=== PATIENT | female | born 1980 | race African-American/Black ===

== ENCOUNTER 2017-01-01 09:36 | Emergency (ER) | payer OTHER ==
[2017-01-01 09:48] VITALS: BMI 25.1
--- NOTE | 2017-01-01 10:28 | PDOC ---
Attending Attestation - Resident Resident Name: Trudi Schneider - ED Attending Attestation I have performed the following: I have examined & evaluated the patient, The case was reviewed & discussed with the resident, I agree w/resident's findings & plan, Exceptions are as noted - HPI HPI: 01/01/17 11:07 36yo F no significant hx p/w 1 week of lightheadedness and weakness. Symptoms are worse when standing. A/w nausea and subjective fever once 2-3 days ago. Denies CP, SOB. Also reports blurry vision for over 2 years. Normal PO intake, has been drinking a lot of water. Saw her PMD on Thursday who referred her to neurology and she made an appointment next month. Pt requesting test and STI testing including HIV. - Physicial Exam PE: 01/01/17 11:16 GENERAL: Awake, alert, and fully oriented, in no acute distress HEAD: No signs of trauma EYES: PERRLA, EOMI, sclera anicteric, conjunctiva clear ENT: Auricles normal inspection, hearing grossly normal, nares patent, oropharynx clear without exudates. Moist mucosa NECK: Normal ROM, supple, no lymphadenopathy, JVD, or masses LUNGS: Breath sounds equal, clear to auscultation bilaterally. No wheezes, and no crackles HEART: Regular rate and rhythm, normal S1 and S2, no murmurs, rubs or gallops ABDOMEN: Soft, nontender, normoactive bowel sounds. No guarding, no rebound. No masses EXTREMITIES: Normal range of motion, no edema. No clubbing or cyanosis. No cords, erythema, or tenderness NEUROLOGICAL: Normal speech, cranial nerves intact, negative pronator drift, 5/ 5 strength in all 4 extremities, normal sensation to light touch in all 4 extremities, normal cerebellar exam, normal gait, normal reflexes and tone SKIN: Warm, Dry, normal turgor, no rashes or lesions noted. - Medical Decision Making 01/01/17 11:17 36yo F p/w lightheadedness for 1 week. Pt has had previous presentation for the same to the ED. She also requests HIV testing, STI testing, and UPT after unprotected intercourse 4 days ago. Vitals unremarkable. Exam unremarkable, including steady gait. Lightheadedness may be 2/2 mild dehydration vs anemia vs infection vs metabolic abnormalities. -labs -UA -UPT -IVF -HIV test -GC/CT UA -reassess 01/01/17 14:34 UA, UPT negative. HIV negative. Labs unremarkable. Pt states her dizziness has resolved and she feels much better after IV fluids. GC/CT pending, pt aware she will be called if positive. I discussed the physical exam findings, ancillary test results and final diagnoses with the patient. I answered all of the patient 's questions. The patient was satisfied with the care received and felt comfortable with the discharge plan and treatment plan. The patient will call their primary care physician within 24 hours to arrange follow-up and will return to the Emergency Department with any new, persistent or worsening symptoms.
--- NOTE | 2017-01-01 10:42 | PDOC ---
History of Present Illness - General Chief Complaint: Lightheaded Stated Complaint: DIZZINESS hx OF VERTIGO Time Seen by Provider: 01/01/17 10:16 Exam Limitations: No Limitations - History of Present Illness Initial Comments: 01/01/17 11:06 CC: Lightheadedness Patient is a 36 y.o. female with a PMH of vertigo present c/o 5 day h/o of lightheadedness. Patient notes she consistently feels lightheaded and it is exacerbated by moving from supine to sitting or sitting to standing. Patient denies any syncopal episodes or associated nausea, vomiting, chest pain, shortness of breath or visual changes. Patient states she was evaluated by her PCP and a neurologist for similar symptoms in May 2015 at which time she was prescribed Meclizine. Patient did not take the medication as she experienced significant side effects (dry mouth) and at that time her symptoms were self-resolving in 1-2 weeks. Patient also requests test and STI testing as she has had a recent episode of unprotected sexual intercourse with a male partner and multiple male partners over the last 1 year. Patient notes her LMP was in November 2015 and she had 1-2 days of spotting in December, however not the usual amount of bleeding associated with her menstrual cycle which are normally every 30 days with 4-5 days of flow. Past History - Past Medical History Allergies/Adverse Reactions: Allergies Allergy/AdvReac Type Severity Reaction Status Date / Time No Known Allergies Allergy Verified 01/01/17 11:03 Home Medications: Ambulatory Orders Meclizine HCl [Antivert -] 12.5 mg PO TID 01/01/17 Asthma: No Cancer: No Cardiac Disorders: No Diabetes: No HTN: No Seizures: No Thyroid Disease: No Other medical history: BISHOP PAIUTE RT EAR - Surgical History Abdominal Surgery: Yes (LIPOSUCTION) - Immunization History Immunization Up to Date: Yes - Suicide/Smoking/Psychosocial Hx Smoking History: Never smoked Information on smoking cessation initiated: No Hx Alcohol Use: No Drug/Substance Use Hx: No Substance Use Type: None Hx Substance Use Treatment: No Review of Systems - Review of Systems Constitutional: No: Chills, Diaphoresis HEENTM: No: Blurred Vision, Double Vision Respiratory: No: Cough, Shortness of Breath Cardiac (ROS): Yes: Lightheadedness. No: Chest Pain, Palpitations ABD/GI: Yes: Poor Fluid Intake. No: Constipated, Diarrhea, Nausea, Vomiting : No: Burning, Dysuria Musculoskeletal: No: Back Pain, Muscle Pain Neurological: No: Headache, Numbness Psychiatric: No: Anxiety, Depression *Physical Exam - Vital Signs Last Vital Signs Temp Pulse Resp BP Pulse Ox 97.9 F 93 H 19 112/73 100 01/01/17 09:45 01/01/17 09:45 01/01/17 09:45 01/01/17 09:45 01/01/17 09:45 - Physical Exam General Appearance: Yes: Nourished, Appropriately Dressed HEENT: positive: EOMI, KARRI Neck: positive: Trachea midline, Supple Respiratory/Chest: positive: Lungs Clear, Normal Breath Sounds Cardiovascular: positive: Regular Rhythm, Regular Rate, S1, S2 Gastrointestinal/Abdominal: positive: Normal Bowel Sounds, Soft Extremity: positive: Normal Capillary Refill, Normal Inspection Integumentary: positive: Normal Color, Dry, Warm Neurologic: positive: bolt header II-XII NML intact, Fully Oriented, Alert, Motor Strength 5/5, Finger to Nose ED Treatment Course - LABORATORY CBC & Chemistry Diagram: 01/01/17 10:00 01/01/17 12:45 Medical Decision Making - Medical Decision Making 01/02/17 14:33 Patient is a 36 y.o. female who presents with a c/o of lightheadedness, however also requests and STI testing. Initial DDx includes dehydration vs. arrthymia vs. UTI vs. . EKG @ presentation showed NSR with HR 90, No QT prolongation, no ST elevations/depression. PLAN: 1. UA 2. CBC, CMP 3. Urine /STI (patient consents to HIV) 4. 1 L IVNS kiln operator service for patient's PCP, Dr. Mckeon, contacted spoke with MA who noted inconsistent medical history. Patient's UA negative for UTI. CBC/CMP both wnL. Patient's symptoms resolved considerably following negative test results. Patient's HIV was similarly negative, however patient counseled that since her episode of unprotected sexual intercourse was within the last week, test should be repeated in 4 weeks and possibly again at the 3 month gabriel. Patient discharged with instruction to f/u with Dr. Mckeon as well as referral to neurology. Patient further advised to return to ED should her symptoms persist/increase in severity. *DC/Admit/Observation/Transfer Diagnosis at time of Disposition: Lightheadedness - Discharge Dispostion Disposition: HOME Condition at time of disposition: Good Admit: No - Referrals Referrals: King Mosher MD [Primary Care Provider] - Ranjith Patterson MD [Staff Physician] - - Patient Instructions Printed Discharge Instructions: DI for Dizziness-Nonvertigo Additional Instructions: You were evaluated today for lightheadedness. In addition, your STI panel and urine test were negative. Please follow up with your primary care physician within 1 week and make an appointment with Dr. Patterson (neurology) for further evaluation. Please return to the Emergency Department for any new, worsening, or concerning symptoms.
[2017-01-01 11:07] LABS: MCH 27.5 pg (25.7-33.7); MCHC 32.3 g/dl (32.0-36.0); MEAN PLT VOLUME 7.6 fl (7.5-11.1); PLATELET COUNT 431 K/MM3 (134-434); RDW 13.7 % (11.6-15.6); WHITE BLOOD COUNT 3.9 K/mm3 (4.0-10.0)
[2017-01-01] MEDS ORDERED: SODIUM CHLORIDE 0.9% 1000 ML INFUS.BAG IV ONE (11:20)
[2017-01-01 12:58] LABS: HIV 1 & 2 AB NEGATIVE; HIV 1 AGp24 NEGATIVE
[2017-01-01 13:46] LABS: ANION GAP 10 (8-16); CALCIUM 8.3 mg/dL (8.5-10.1); CO2 26 mmol/L (21-32); GLUCOSE,RANDOM 90 mg/dL (74-106)
[2017-01-01 13:50] LABS: ALK PHOS 84 U/L (45-117); BILIRUBIN,TOTAL 0.4 mg/dL (0.2-1.0); CREATININE 0.7 mg/dL (0.55-1.02); SGPT/ALT 50 U/L (12-78); TOT PROT 6.7 g/dl (6.4-8.2)
[2017-01-01 13:52] LABS: SGOT/AST 34 U/L (15-37)
[2017-01-01 14:22] LABS: URINE APPEARANCE CLEAR; URINE BILIRUBIN NEGATIVE (NEGATIVE); URINE BLOOD 1+ (NEGATIVE); URINE COLOR YELLOW; URINE GLUCOSE (UA) NEGATIVE (NEGATIVE); URINE KETONE NEGATIVE (NEGATIVE); URINE LEUK ESTERASE NEGATIVE (NEGATIVE); URINE NITRITE NEGATIVE (NEGATIVE); URINE PROTEIN NEGATIVE (NEGATIVE)
[2017-01-01 14:27] LABS: URINE MUCUS RARE; URINE RBC 2 /hpf (0-3); URINE WBC 1 /hpf (3-5)
--- NOTE | 2017-01-01 14:36 | EKG ---
Test Reason : Blood Pressure : / mmHG Vent. Rate : 090 BPM Atrial Rate : 090 BPM P-R Int : 162 ms QRS Dur : 070 ms QT Int : 328 ms P-R-T Axes : 071 012 012 degrees QTc Int : 401 ms NORMAL SINUS RHYTHM NORMAL ECG NO PREVIOUS ECGS AVAILABLE Confirmed by AUSTIN AHYS MD ([id number]) on 01/01/2017 2:36:17 PM Referred By: Confirmed By:AUSTIN HAYS MD
[2017-01-01 14:56] VITALS: BP 112/74; PULSE 82; TEMP 97.2
== END 2017-01-01 14:56 | disposition home or self-care (01) ==
LOC: JER 09:36
DX: R42 Dizziness and giddiness (principal); Z11.3 Encounter for screening for infections with a predominantly sexual mode of transmission; Z77.21 Contact with and (suspected) exposure to potentially hazardous body fluids
CPT/HCPCS: 36415; 80053; 81003; 81015; 84703; 85027; 87389; 87491; 87591; 93005; 93010; 99282-25

== ENCOUNTER 2019-01-06 21:14 | Emergency (ER) | payer OTHER ==
[2019-01-06 21:24] VITALS: BP 114/79; PULSE 88; TEMP 98.3; BMI 27.8
--- NOTE | 2019-01-06 21:24 | PDOC ---
Rapid Medical Evaluation Chief Complaint: Abscess Boil Time Seen by Provider: 01/06/19 21:21 Medical Evaluation: Allergies Allergy/AdvReac Type Severity Reaction Status Date / Time No Known Allergies Allergy Verified 01/06/19 21:20 01/06/19 21:21 38 year old female send by urgent care for I&D for pilonidal abscess. patient reports sacral pain . patient c/o of slight dysuria PE: patient alert ox3 A: pilonidal cyst P: patient to the ER for further management of care Discharge Disposition - Diagnosis Pilonidal abscess - Referrals - Patient Instructions - Post Discharge Activity
[2019-01-06] MEDS ORDERED: LIDOCAINE HCL 2% (50ML VIAL) SQ ONE (21:46)
[2019-01-06] MEDS ORDERED: LIDOCAINE HCL 2% (20ML MULTI-DOSE VIAL) NR ONE (21:47)
[2019-01-06] MEDS ORDERED: CEPHALEXIN MONOHYDRATE 500 MG CAPSULE (UD) PO ONE (22:14)
--- NOTE | 2019-01-06 22:14 | PDOC ---
History of Present Illness - General Chief Complaint: Abscess Boil Stated Complaint: SENT BY PCP/CYST Time Seen by Provider: 01/06/19 21:21 History Source: Patient Exam Limitations: No Limitations - History of Present Illness Initial Comments: 01/06/19 22:27 Chief complaint: Pilonidal cyst Patient is a healthy 38-year-old female who has had one week of increasing swelling just above the crease in her buttocks. No fever pain has gotten worse in the last 2 days. Patient went to urgent care today and they told her she had a pilonidal cyst and she needs come to the ER for further evaluation. Patient has never had this before. GENERAL/CONSTITUTIONAL: No fever, weakness. dizziness HEAD, EYES, EARS, NOSE AND THROAT: No change in vision. No ear pain or discharge. No sore throat. CARDIOVASCULAR: No chest pain RESPIRATORY: No shortness of breath or cough GASTROINTESTINAL: No pain, nausea, vomiting, diarrhea or constipation GENITOURINARY: No dysuria MUSCULOSKELETAL: No neck or back pain SKIN: No rash, + pilonidal cyst NEUROLOGIC: No headache, vertigo, loss of consciousness, or loss of sensation. GENERAL: The patient is awake, alert, and fully oriented, in no acute distress. HEAD: Normal with no signs of trauma. EYES: Pupils equal, round and reactive to light, sclera anicteric, conjunctiva clear. ENT: pharynx: no erythema, no exudate, uvula midline NECK: supple CHEST: clear, nontender, rr ABD: soft, nontender BACK: Small approximately 2 cm area of tenderness just above the left buttocks crease, minimal redness, no signs of gross cellulitis. And superior and a little bit to the left of this was another area that was approximately 3 cm in diameter, tender, questionable fluctuance, no other erythema, swelling or signs of cellulitis. Rest of back, no tenderness or signs of injury EXTREMITIES: Normal range of motion, no edema. NEUROLOGICAL: Normal speech, normal gait. SKIN: Warm, Dry Past History - Past Medical History Allergies/Adverse Reactions: Allergies Allergy/AdvReac Type Severity Reaction Status Date / Time No Known Allergies Allergy Verified 01/06/19 21:20 Home Medications: Ambulatory Orders Meclizine HCl [Antivert -] 12.5 mg PO TID 01/01/17 Cephalexin [Keflex] 1,000 mg PO BID #28 capsule 01/06/19 Sulfamethoxazole/Trimethoprim [Bactrim Ds Tablet] 1 each PO BID #14 tablet 01/06 Asthma: No Cancer: No Cardiac Disorders: No COPD: No Diabetes: No HTN: No Seizures: No Thyroid Disease: No - Surgical History Abdominal Surgery: Yes (LIPOSUCTION) - Immunization History Immunization Up to Date: Yes - Psycho Social/Smoking Cessation Hx Smoking History: Never smoked Hx Alcohol Use: No Drug/Substance Use Hx: No Substance Use Type: None Hx Substance Use Treatment: No *Physical Exam - Vital Signs Last Vital Signs Temp Pulse Resp BP Pulse Ox 98.3 F 88 18 114/79 97 01/06/19 21:21 01/06/19 21:21 01/06/19 21:21 01/06/19 21:21 01/06/19 21:21 Procedures - Incision and Drainage I&D Site: Left: Buttock Betadine cleansed: Yes Anesthesia: 2% Lidocaine Blade Size: 11 Attempts: 1 Iodinated Packin/2 in Plain Packing: Yes Complications: none Dressing: Yes Progress: 01/06/19 22:32 See note, 2 areas incision and drainage without any complications, packing put in both Medical Decision Making - Medical Decision Making 01/06/19 22:30 Well-appearing healthy 38-year-old female with pilonidal cysts, exam shows there are 2 areas of erythema, questionable communicating with each other. Will I&D larger area, questionable I&D smaller area depending on drainage pattern. Incision and drainage of the larger area did not show pus, there was a decent amount of blood, area was probed, pocket was found but there was no gross pus. Second smaller area was I&D need with decent amount of pus, pus was expressed, ear irrigated, packing placed in both areas. Patient will be sent home on antibiotics, will return on Thursday to have it reevaluated and packing removed. Patient will call surgeon in the morning and make an appointment for next week. Discussed issues, findings, results, applicable medications and treatments and follow-up. All these were understood and all questions were answered Discharge - Discharge Information Problems reviewed: Yes Clinical Impression/Diagnosis: Pilonidal abscess Condition: Stable Disposition: HOME - Admission No - Additional Discharge Information Prescriptions: Cephalexin [Keflex] 1,000 mg PO BID #28 capsule Sulfamethoxazole/Trimethoprim [Bactrim Ds Tablet] 1 each PO BID #14 tablet Prescription Drug Monitoring Program (I-STOP) results: I-STOP not reviewed - Follow up/Referral Referrals: King Mosher MD [Primary Care Provider] - Niko Dutta MD [Staff Physician] - - Patient Discharge Instructions Patient Printed Discharge Instructions: Pilonidal Cyst Additional Instructions: Leave packing in place, do not remove bandage Take the Bactrim and the Keflex, both twice a day until finished Return in 2 days to have packing removed and have reevaluation Return sooner if fever or feeling sicker Call surgeon tomorrow to make a follow-up appointment for next week - Post Discharge Activity
[2019-01-06] MEDS ORDERED: SULFAMETHOXAZOLE/TRIMETHOPRIM 800MG/160MG D.S. TABLET PO ONE (22:15)
[2019-01-06] MEDS ORDERED: SULFAMETHOXAZOLE/TRIMETHOPRIM 800MG/160MG D.S. TABLET ONE (22:23)
[2019-01-06] MEDS ORDERED: CEPHALEXIN MONOHYDRATE 500 MG CAPSULE (UD) ONE (22:24)
== END 2019-01-06 22:28 | disposition home or self-care (01) ==
LOC: JERFT 21:14
PROC: 0J990ZZ Drainage of Buttock Subcutaneous Tissue and Fascia, Open Approach (ICD-10-PCS; principal; 2019-01-06)
DX: L05.01 Pilonidal cyst with abscess (principal)
CPT/HCPCS: 99281-25

== ENCOUNTER 2019-01-08 11:53 | Emergency (ER) | payer OTHER ==
[2019-01-08 11:59] VITALS: BP 106/71; PULSE 96; TEMP 98.2; BMI 27.8
--- NOTE | 2019-01-08 12:46 | PDOC ---
Suture Removal/Wound Check HPI - History of Present Illness Chief Complaint: Revisit,Wound Recheck Stated Complaint: WOUND/REVISIT Time Seen by Provider: 01/08/19 12:06 History Source: Yes: Patient (wound check, s/p pilondial abscess that was drained 2 days ago) - Previous ED Treatment Type of procedure performed on last visit: Yes: I&D of Abscess Tetanus Immunization: Yes: Up to Date Past History - Travel Traveled outside of the country in the last 30 days: No Close contact w/someone who was outside of country & ill: No - Past Medical History Allergies/Adverse Reactions: Allergies Allergy/AdvReac Type Severity Reaction Status Date / Time No Known Allergies Allergy Verified 01/06/19 21:20 Home Medications: Ambulatory Orders Meclizine HCl [Antivert -] 12.5 mg PO TID 01/01/17 Cephalexin [Keflex] 1,000 mg PO BID #28 capsule 01/06/19 Sulfamethoxazole/Trimethoprim [Bactrim Ds Tablet] 1 each PO BID #14 tablet 01/06 Asthma: No Cancer: No Cardiac Disorders: No COPD: No Diabetes: No HTN: No Seizures: No Thyroid Disease: No - Surgical History Abdominal Surgery: Yes (LIPOSUCTION) - Immunization History Immunization Up to Date: Yes - Psycho Social/Smoking Cessation Hx Smoking History: Never smoked Have you smoked in the past 12 months: No Information on smoking cessation initiated: No Hx Alcohol Use: No Drug/Substance Use Hx: No Substance Use Type: None Hx Substance Use Treatment: No *Review of Systems - Review of Systems Constitutional: No: Chills, Fever Integumentary: No: Erythema, Pallor, Pruritus, Rash *Physical Exam - Vital Signs Last Vital Signs Temp Pulse Resp BP Pulse Ox 98.2 F 96 H 18 106/71 96 01/08/19 11:56 01/08/19 11:56 01/08/19 11:56 01/08/19 11:56 01/08/19 11:56 - Physical Exam General Appearance: Yes: Nourished Integumentary: positive: Other (+ 2 incison noted in gluteal cleft with packing , packing removed wih drainage, no warmth noted) Neurologic: positive: laborer orchard II-XII NML intact, Fully Oriented, Normal Mood/Affect , Normal Response, Motor Strength 5/5 Medical Decision Making - Medical Decision Making 01/08/19 12:49 38y/o F for wound check s/p pilonidial abscess which was drained 2 days ago pt is also on abx and is complaints UTD with vaccines no complaints Exam with incised area, still draining wound repacked RTC in 2 days for another wound check Discharge - Discharge Information Problems reviewed: Yes Clinical Impression/Diagnosis: Wound check, abscess Condition: Stable Disposition: HOME - Follow up/Referral Referrals: King Mosher MD [Primary Care Provider] - - Patient Discharge Instructions Additional Instructions: Your wound was packed again today please return to ER in 2 days for another wound check continue antibiotics as prescribed return to the ER if worsening symptoms occurs. - Post Discharge Activity
== END 2019-01-08 12:54 | disposition home or self-care (01) ==
LOC: JERFT 11:53
DX: Z48.817 Encounter for surgical aftercare following surgery on the skin and subcutaneous tissue (principal); Z48.01 Encounter for change or removal of surgical wound dressing
CPT/HCPCS: 99281-25

== ENCOUNTER 2019-01-10 19:41 | Emergency (ER) | payer OTHER ==
[2019-01-10 20:08] VITALS: BP 121/76; PULSE 96; TEMP 98.3; BMI 27.8
--- NOTE | 2019-01-10 20:08 | PDOC ---
Rapid Medical Evaluation Time Seen by Provider: 01/10/19 20:05 Medical Evaluation: Allergies Allergy/AdvReac Type Severity Reaction Status Date / Time No Known Allergies Allergy Verified 01/06/19 21:20 01/10/19 20:06 CC: wound check for pilonidal abscess PE: deferred Orders: nothing Patient is to proceed to ER for further evaluation. Discharge Disposition - Diagnosis Wound check, abscess - Referrals Referrals: King Mosher MD [Primary Care Provider] - - Patient Instructions - Post Discharge Activity
--- NOTE | 2019-01-10 21:29 | PDOC ---
History of Present Illness - General Chief Complaint: Revisit,Wound Recheck Stated Complaint: FOLLOW-UP FROM ER VISIT Time Seen by Provider: 01/10/19 20:05 History Source: Patient - History of Present Illness Initial Comments: 01/10/19 21:48 38 year old female c/o I&D of 2 abscess to lower back 4 days ago. patient reports some pain to the site and has drainage. patient reports that shes is here for a wound check and packing to be changed. denies fever/ chills, patient reports that she had liposuction to the site 08/2018. pMHX: deaf in right ear 01/10/19 23:05 Past History - Past Medical History Allergies/Adverse Reactions: Allergies Allergy/AdvReac Type Severity Reaction Status Date / Time No Known Allergies Allergy Verified 01/06/19 21:20 Home Medications: Ambulatory Orders Meclizine HCl [Antivert -] 12.5 mg PO TID 01/01/17 Cephalexin [Keflex] 1,000 mg PO BID #28 capsule 01/06/19 Sulfamethoxazole/Trimethoprim [Bactrim Ds Tablet] 1 each PO BID #14 tablet 01/06 Clindamycin [Cleocin -] 300 mg PO Q6HPO #40 capsule 01/10/19 Lactobacillus Acidophilus [Probiotic Acidophilus] 1 each PO BID #30 tablet 01/10 Asthma: No Cancer: No Cardiac Disorders: No COPD: No Diabetes: No HTN: No Seizures: No Thyroid Disease: No - Surgical History Abdominal Surgery: Yes (LIPOSUCTION) - Immunization History Immunization Up to Date: Yes - Psycho Social/Smoking Cessation Hx Smoking History: Never smoked Hx Alcohol Use: No Drug/Substance Use Hx: No Substance Use Type: None Hx Substance Use Treatment: No Review of Systems - Review of Systems Able to Perform ROS?: Yes Is the patient limited [place] proficient: No Constitutional: No: Symptoms Reported, See HPI, Chills, Diaphoresis, Fever, Loss of Appetite, Malaise, Night Sweats, Weakness, Weight Stable, Unintentional Wgt. Loss, Unexplained wgt Loss, Other Integumentary: Yes: Other (wound) *Physical Exam - Vital Signs Last Vital Signs Temp Pulse Resp BP Pulse Ox 98.3 F 96 H 19 121/76 97 01/10/19 20:06 01/10/19 20:06 01/10/19 20:06 01/10/19 20:06 01/10/19 20:06 - Physical Exam General Appearance: Yes: Appropriately Dressed Respiratory/Chest: positive: Lungs Clear, Normal Breath Sounds Integumentary: positive: Normal Color, Warm, Other (no erythema to site. minimal drainage note. 2 packing removed. dry gauze applies) ED Progress Note - Progress Note Progress Note: 01/10/19 21:53 wound reeevaluation P: will change to clindamycin wound culture outpatient surgery follow up Discharge - Discharge Information Problems reviewed: Yes Clinical Impression/Diagnosis: Wound check, abscess Condition: Stable Disposition: HOME - Additional Discharge Information Prescriptions: Clindamycin [Cleocin -] 300 mg PO Q6HPO #40 capsule Lactobacillus Acidophilus [Probiotic Acidophilus] 1 each PO BID #30 tablet - Follow up/Referral Referrals: King Mosher MD [Primary Care Provider] - Jamie Finley MD [Staff Physician] - Call tomorrow - Patient Discharge Instructions Patient Printed Discharge Instructions: DI for Wound Infection Additional Instructions: continue clindamycin as prescribed. apply warm compress to the area. take warm showers. follow up with your doctor as soon as possible. - Post Discharge Activity Work/Back to School Note: Back to Work
== END 2019-01-10 22:07 | disposition home or self-care (01) ==
LOC: JER 19:41
DX: Z48.817 Encounter for surgical aftercare following surgery on the skin and subcutaneous tissue (principal); Z48.01 Encounter for change or removal of surgical wound dressing; L05.01 Pilonidal cyst with abscess
CPT/HCPCS: 87070; 87205; 99281-25

== ENCOUNTER 2024-04-12 21:43 | Emergency (ER) | payer OTHER ==
[2024-04-12 21:49] VITALS: BMI 33.6
[2024-04-12 23:09] LABS: BASO % 0.8 % (0-2.0); EOS % 1.6 % (0-4.5); HEMATOCRIT 39.4 % (32.4-45.2); LYMPH % 39.8 % (8-40); MCH 28.5 pg (25.7-33.7); MEAN CELL VOLUME 86.4 fl (80-96); MEAN PLT VOLUME 7.1 fl (7.5-11.1); MONO % 6.3 % (3.8-10.2); NEUT % 51.5 % (42.8-82.8); PLATELET COUNT 356 10^3/uL (134-434); RBC 4.56 M/mm3 (3.60-5.2); RDW 13.5 % (11.6-15.6); WHITE BLOOD COUNT 8.6 K/mm3 (4.0-10.0)
[2024-04-12 23:19] LABS: INR 0.97 (0.83-1.09)
[2024-04-12 23:31] LABS: POTASSIUM 4.3 mmol/L (3.5-5.1)
[2024-04-12 23:32] LABS: CALCIUM 9.2 mg/dL (8.5-10.1)
[2024-04-12 23:33] LABS: ALBUMIN 3.6 g/dl (3.4-5.0); BLOOD UREA NITROGEN 12.7 mg/dL (7-18)
[2024-04-12 23:37] LABS: BILIRUBIN,TOTAL 0.2 mg/dL (0.2-1); CREATININE 0.8 mg/dL (0.55-1.3)
[2024-04-13 00:49] LABS: EPI CELLS 6 /uL (0-25.1); HYALINE CASTS 0 /uL (0-3.1); URINE APPEARANCE CLEAR; URINE BACTERIA 44 /uL (0-1359); URINE BILIRUBIN NEGATIVE (NEGATIVE); URINE COLOR YELLOW; URINE GLUCOSE (UA) NEGATIVE (NEGATIVE); URINE KETONE TRACE (NEGATIVE); URINE LEUK ESTERASE NEGATIVE (NEGATIVE); URINE NITRITE NEGATIVE (NEGATIVE); URINE PROTEIN NEGATIVE (NEGATIVE); URINE RBC 19 /uL (0-23.9); URINE WBC 4 /uL (0-25.8)
[2024-04-13 01:55] VITALS: BP 119/69; PULSE 79; RESP 19; TEMP 98.2
== END 2024-04-13 02:15 | disposition home or self-care (01) ==
LOC: JER 21:43
DX: O03.9 Complete or unspecified spontaneous abortion without complication (principal)
CPT/HCPCS: 36415; 76817-TC; 80053; 81003; 84702; 85025; 85610; 85730; 86850; 86900; 86901; 87086; 99284-25